=== PATIENT | female | born 1950 | race Two or more races ===

== ENCOUNTER 2018-09-30 02:00 | Emergency (ER) | payer MEDICARE, OTHER ==
[~2018-09-30] VITALS: Ht 144.8 cm; Wt 56.7 kg
--- NOTE | 2018-09-30 02:10 | NUR ---
PT BIBSELF C/C L ANKLE PAIN AND SWELLING X 2 WEEKS. -TRAUMA. PT ABLE TO BEAR WEIGHT. PT AOX4. NAD NOTED. RESP EVEN AND UNLABORED. PT ON MONITOR IN BED 9 WITH FAMILY AT BEDSIDE. WILL CONTINUE TO MONITOR.
[2018-09-30 02:19] VITALS: BP 160/106
[2018-09-30] MEDS ORDERED: IBUPROFEN 400 MG TABLET ONE (02:20)
[2018-09-30] MEDS ORDERED: IBUPROFEN 400 MG TABLET PO ONE (02:30)
--- NOTE | 2018-09-30 02:30 | NUR ---
RADIOLOGY AT BEDSIDE FOR XRAY
--- NOTE | 2018-09-30 04:12 | NUR ---
RADIOLOGY AT BEDSIDE FOR SHOULDER XRAY
--- NOTE | 2018-09-30 04:56 | NUR ---
Patient discharged to home in stable condition. Written and verbal after care instructions given. Patient verbalizes understanding of instruction. PT AMBULATORY WITH STEADY GAIT.
== END 2018-09-30 04:57 | disposition home or self-care (01) ==
LOC: ER 02:00
DX: M19.072 Primary osteoarthritis, left ankle and foot (principal); M25.512 Pain in left shoulder; M25.511 Pain in right shoulder; E03.9 Hypothyroidism, unspecified
CPT/HCPCS: 73030-TC; 73610-TC; 93971-TC

== ENCOUNTER 2019-11-13 14:59 | Inpatient (IN) | payer MEDICARE, OTHER ==
[~2019-11-13] VITALS: Ht 147.3 cm; Wt 71.2 kg
--- NOTE | 2019-11-13 15:11 | NUR ---
VIJAY CASTANEDA 79 From Home "Missed 2steps on step stool and fell- LLE pain, Given 100mcg fentanyl" to ER bed 9, hooked to monitor, changed to hosp gown, warm blanket provided, patient aoX4, breathing even and unlabored, awaiting md begum
--- NOTE | 2019-11-13 15:15 | NUR ---
Dr Riddle at bedside
[2019-11-13] MEDS ORDERED: KETOROLAC TROMETHAMINE INJ 30 MG/ML VIAL ONE (15:29)
[2019-11-13] MEDS ORDERED: KETOROLAC TROMETHAMINE INJ 60 MG/2 ML VIAL IM ONE (15:30)
[2019-11-13] MEDS ORDERED: IV NS 0.9% 1,000 ML BAG IV ONE (16:00)
--- NOTE | 2019-11-13 16:06 | NUR ---
CALLED NURSING SUP FOR BED
--- NOTE | 2019-11-13 16:07 | NUR ---
MOMO DYE FOR ADMISSION
[2019-11-13 16:12] LABS: BASOPHILS # (AUTO) 0.1 /CMM (0.0-0.2); BASOPHILS % (AUTO) 0.6 % (0.0-2.0); EOSINOPHILS % (AUTO) 0.4 % (0.0-6.0); HEMATOCRIT 37 % (33-45); LYMPHOCYTES # (AUTO) 1.6 /CMM (0.8-4.8); LYMPHOCYTES % (AUTO) 11.4 % (20.0-44.0); MEAN CORPUSCULAR HGB CONC 32 g/dl (31.0-36.0); MEAN CORPUSCULAR VOLUME 91 fL (82-100); MONOCYTES % (AUTO) 6.9 % (2.0-12.0); NEUTROPHILS # (AUTO) 11.2 /CMM (1.8-8.9); NEUTROPHILS % (AUTO) 80.7 % (43.0-81.0); PLATELET COUNT (AUTO) 293 /CMM (150-450); RED BLOOD CELL COUNT(AUTO) 4.12 MIL/uL (4.0-5.2); WHITE BLOOD COUNT (AUTO) 13.9 K/uL (4.3-11.0)
[2019-11-13 16:21] LABS: CALCIUM, SERUM 8.8 mg/dL (8.5-10.1); POTASSIUM 3.5 mmol/L (3.5-5.1)
[2019-11-13 16:26] LABS: ALBUMIN 3.4 g/dL (3.4-5.0); BILIRUBIN,DIRECT 0.1 mg/dL (0.0-0.2); BILIRUBIN,TOTAL 0.3 mg/dL (0.2-1.0); TOTAL PROTEIN, SERUM 6.9 g/dL (6.4-8.2)
[2019-11-13 16:30] LABS: APPEARANCE,URINE Clear (CLEAR); BILIRUBIN,URINE Negative (NEGATIVE); BLOOD, URINE Small Ery/uL (NEGATIVE); COLOR,URINE Yellow (YELLOW); KETONES,URINE Negative (NEGATIVE); LEUKOCYTE ESTERASE ,URINE Negative (NEGATIVE); NITRITE, URINE Negative (NEGATIVE); PROTEIN,URINE Negative (NEGATIVE); UGLUCOSE Negative (NEGATIVE); UROBILINOGEN,URINE 0.2 EU/dL (0.2)
[2019-11-13] MEDS ORDERED: Z GUARD REMEDY 2 OZ OINT TP PRN (16:30)
[2019-11-13] MEDS ORDERED: ACETAMINOPHEN 325 MG TABLET PO PRN (16:30)
[2019-11-13] MEDS ORDERED: ZOLPIDEM TARTRATE 5 MG TABLET PO PRN (16:30)
[2019-11-13] MEDS ORDERED: HYDROCODONE/APAP 5/325MG 1 EACH TABLET PO PRN (16:30)
[2019-11-13] MEDS ORDERED: MAG HYDROX/AL HYDROX/SIMETH 30 ML UDC PO PRN (16:30)
[2019-11-13] MEDS ORDERED: MAGNESIUM HYDROXIDE 30 ML UDC PO PRN (16:30)
--- NOTE | 2019-11-13 16:35 | NUR ---
REPORT GIVEN TO MIMI VILA OF [facility]
[2019-11-13] MEDS ORDERED: HYDROMORPHONE 1 MG/1 ML DISP.SYRIN IV ONE (17:00)
[2019-11-13 17:20] VITALS: BP 164/73
--- NOTE | 2019-11-13 17:30 | NUR ---
MS RN NOTES INFORMED PA/CC REGARDING PT FOR ORTHO CONSULT. PA/CC VERIFIED PT CAN EAT TONIGHT AND ORDERED STAT CT OF LFT KNEE WITH NO CONTRAST WITH 3D RECONSTRUCTION. CALLED TO RADIOLOGY AND MADE AWARE. PT INFORMED WITH PLAN WELL.
--- NOTE | 2019-11-13 17:45 | NUR ---
MS SAW SHARPENER NOTES RECEIVED PT FROM ER DEPT VIA [facility]RA[facility], ARRIVED AT THE UNIT AT 1705. PT AWAKE, A/O X4. TOLERATING RA,WITH NO ACUTE RESPIRATORY DISTRESS NOTED. VS TAKEN AND RECORDED. PT STATES PAIN TO LEFT KNEE OF 10/10, ORDERED DILAUDID 1MG ONE TIME DOSE GIVEN. PT ABLE TO PROVIDED HISTORY. PT ORIENTED TO ROOM, STAFF, ETC. PT PREFERS NOT TO BE TURNED OR MOVED FOR SKIN ASSESSMENTS AT THIS TIME. NO PICTURES TAKEN AND PT CLAIMED SKIN INTACT. PT KEPT COMFORTABLE IN BED AT THIS TIME. HOSPITALIST/MD/ADMITTING/GA AND ORTHO PA/CC MADE AWARE ABOUT PT. PIV TO LAC G20 AND RIGH HAND, FLUSHED WITH NS INTACT AND OPERATIONAL. FC IN PLACE WITH CLEAR YELLOW URINE. CALL LIGHT KEPT WITHIN REACH. PT'S BED IN LOWEST, LOCKED POSITION WITH SR X3. WILL ENDORSE TO INCOMING NIGHT NURSE FOR BALTAZAR.
[2019-11-13] MEDS ORDERED: LEVO75TA7 PO (18:54)
[2019-11-13] MEDS ORDERED: PRED5TAB48 PO (18:54)
--- NOTE | 2019-11-13 18:57 | NUR ---
MS RN NOTES SEEN AND EVALUATED BY /CONRAD, VERIFIED NPO STATUS POST MIDNIGHT AND MED RECON INPUT DONE. MD NOTIFIED.
[2019-11-13 20:00] VITALS: BP 143/62
--- NOTE | 2019-11-13 20:00 | NUR ---
MS RN NOTES NOTIFIED COURNasrin RE KNEE CT RESULTS. NNO AT THIS TIME. WILL CONTINUE TO MONITOR.
[2019-11-13 20:01] LABS: BACTERIA,URINE None seen /HPF (None Seen); SQUAMOUS EPITHELIAL CELL,UR Few /HPF (None Seen); WBC,URINE 0-2 /HPF (0-3)
--- NOTE | 2019-11-14 | NUR ---
MS RN NOTES RN EMI HANNA NOTIFIED INDUSTRIAL MAINTENANCE MANAGER RE PT SURGERY SCHEDULE ON FRIDAY @ 1330. WILL CONTINUE TO MONITOR
[2019-11-14] MEDS: ONDANSETRON HCL/PF 4 MG/2 ML VIAL IVP PRN ×2 (00:06→05:54)
[2019-11-14] MEDS: MORPHINE SULFATE INJ 2 MG/ML DISP.SYRIN IV PRN ×5 (00:06→22:52)
--- NOTE | 2019-11-14 06:15 | NUR ---
MS RN NOTES AWAKE & RESPONSIVE. NOT IN ANY DISTRESS. NO SOB NOTED. DENIES ANY PAIN OR DISCOMFORT AT THIS TIME. WITH IV-HL PATENT & INTACT. MONITORED ACCORDINGLY. CALL LIGHT WITHIN REACH. BED IN LOWEST POSITION. SR UP X 3 WITH BED ALARM ON FOR SAFETY. WILL ENDORSE TO NEXT SHIFT.
[2019-11-14 06:45] LABS: BASOPHILS % (AUTO) 0.2 % (0.0-2.0); EOSINOPHILS % (AUTO) 1.2 % (0.0-6.0); HEMATOCRIT 32 % (33-45); HEMOGLOBIN 10.4 g/dL (11.5-14.8); LYMPHOCYTES # (AUTO) 1.3 /CMM (0.8-4.8); LYMPHOCYTES % (AUTO) 13.4 % (20.0-44.0); MEAN CORPUSCULAR HGB CONC 33 g/dl (31.0-36.0); MEAN CORPUSCULAR VOLUME 89 fL (82-100); MONOCYTES # (AUTO) 0.8 /CMM (0.1-1.30); MONOCYTES % (AUTO) 8.4 % (2.0-12.0); NEUTROPHILS # (AUTO) 7.5 /CMM (1.8-8.9); NEUTROPHILS % (AUTO) 76.8 % (43.0-81.0); PLATELET COUNT (AUTO) 237 /CMM (150-450); RED BLOOD CELL COUNT(AUTO) 3.57 MIL/uL (4.0-5.2); WHITE BLOOD COUNT (AUTO) 9.8 K/uL (4.3-11.0)
[2019-11-14 07:11] LABS: CALCIUM, SERUM 8.3 mg/dL (8.5-10.1); CREATININE 0.8 mg/dL (0.6-1.3); MAGNESIUM 1.7 mg/dL (1.8-2.4); POTASSIUM 3.9 mmol/L (3.5-5.1)
--- NOTE | 2019-11-14 07:24 | NUR ---
MS RN OPENING NOTES RECEIVED PT AWAKE, A/O X4. TOLERATING RA,WITH NO ACUTE RESPIRATORY DISTRESS NOTED. PT DENIES ANY PAIN OR DISCOMFORT AT THIS TIME. PT DENIES ANY QUESTIONS OR CONCERNS AT THE MOMENT. PIV TO LAC G20 AND RIGHT HAND, BOTH FLUSHED WITH NS INTACT AND OPERATIONAL. FC IN PLACE WITH CLEAR YELLOW URINE. PT KEPT COMFORTABLE IN BED. CALL LIGHT KEPT WITHIN REACH. PT'S BED IN LOWEST, LOCKED POSITION WITH SR X3. WILL CONTINUE PLAN OF CARE.
--- NOTE | 2019-11-14 07:30 | NUR ---
MS RN NOTES PER HOUSEKEEPER HEAD NURSE/MADY, DR MAC CALLED LAST NIGHT AND SPOKE TO THEIR CHARGE NURSE/CAS, SURGERY ON FRIDAY AROUND 1PM. PT MADE AWARE.
[2019-11-14 08:00] VITALS: BP 140/61
[2019-11-14] MEDS ORDERED: MULT-24 PO (08:03)
[2019-11-14] MEDS ORDERED: FERR325T24 PO (08:03)
[2019-11-14] MEDS ORDERED: TURM500C9 PO (08:04)
[2019-11-14] MEDS: Magnesium 1GM/D5W 100ML PREMIX 100 ML IV SCH ×2 (08:28→10:28)
[2019-11-14] MEDS: MULTIVITAMINS,THERAGRAN 1 UDTAB TABLET PO SCH (08:45)
[2019-11-14] MEDS: LEVOTHYROXINE SODIUM 75 MCG TABLET PO SCH (08:45)
[2019-11-14] MEDS: predniSONE 5 MG TABLET PO SCH (08:45)
[2019-11-14 09:15] LABS: THYROID STIMULATING HORMONE 0.411 uIU/mL (0.358-3.74)
--- NOTE | 2019-11-14 14:45 | NUR ---
MS RN NOTES PRN MORPHINE IV GIVEN TO PT PER HER REPORT OF PAIN SCALE OF 8-9 OUT OF 10. WILL CONTINUE TO MONITOR PT.
[2019-11-14 16:00] VITALS: BP 165/87
--- NOTE | 2019-11-14 18:51 | NUR ---
MS RN CLOSING NOTES PT REMAINS IN BED, AWAKE, A/O X4. TOLERATING RA,WITH NO ACUTE RESPIRATORY DISTRESS NOTED. PT REPORTED 8/10 PAIN TO LEFT KNEE, PRN MORPHINE GIVEN PRN. PIV TO LAC G20, FLUSHED WITH NS INTACT AND OPERATIONAL. FC IN PLACE WITH CLEAR YELLOW URINE, OUTPUT OF 600ML. PT KEPT COMFORTABLE IN BED. CALL LIGHT KEPT WITHIN REACH. PT'S BED IN LOWEST, LOCKED POSITION WITH SR X3. WILL ENDORSE TO INCOMING UNIT SECY NURSE FOR BALTAZAR.
[2019-11-14 20:00] VITALS: BP 144/63
[2019-11-14 20:12] VITALS: BP 144/63
--- NOTE | 2019-11-14 21:18 | NUR ---
DIAMOND PICKER: RECEIVED REPORT FROM MIMI VILA AT 1900. PT IN BED, AWAKE, A/O X3, ON RA RESPIRATIONS EVEN AND UNLABORED, RECEIVED PRN MORPHINE AT 1846, PT STATED HER PAIN IS NOW 3/10, IMPROVED, AND PAIN IS TOLERABLE. IV ACCESS PATENT AND FLUSHING WELL, ON HL. DISCUSSED PLAN OF CARE TO PT. PT WOULD LIKE TO SPEAK WITH SURGEON/ORTHO BEFORE SIGNING ANY PAPER WORKS SUCH CONSENT. INFORMED PT SHE WILL BE NPO AFTER MIDNIGHT IN PREPARATION, PT AGREED AND UNDERSTAND. SAFETY PRECAUTIONS FOR FALL INITIATED, CALL LIGHT IN REACH, WILL CONTINUE MONITORING PT.
--- NOTE | 2019-11-14 22:52 | NUR ---
prn morphine: pt c/o 03/27 left knee and left leg pain, requesting for morphine. prn morphine 2mg ivp administered to pt at this time. pt stated she can feel its burning, check iv access, not leaking, able to flush easily with 10cc normal saline easily qqithout meeting resistance, no swelling noted or bleeding noted on iv access site prior to giving medication. informed pt we can always start new iv access so she's not going to have discomfort, but pt refused, stated "just use that its okay". education provided to pt. will continue monitoring pt.
[2019-11-15] VITALS (7 sets, daily range): BP systolic 126–162; BP diastolic 67–84
--- NOTE | 2019-11-15 00:19 | NUR ---
RN NOTES: REMINDED PT ABOUT BEING NPO, REMOVED BOTTLED WATER. NPO SIGN POSTED OUTSIDE THE ROOM/DOOR.
--- NOTE | 2019-11-15 02:00 | NUR ---
RN NOTES: PT REFUSED TO BE TURN AND REPOSITION STATED SHE HAD ENOUGH FROM YESTERDAY WHEN SHE LET THE ROAD DESIGN DRAFTSPERSON AND RN CLEANED HER BECAUSE SHE HAD BM.
[2019-11-15 06:24] LABS: BASOPHILS % (AUTO) 0.3 % (0.0-2.0); EOSINOPHILS % (AUTO) 2.3 % (0.0-6.0); HEMATOCRIT 33 % (33-45); HEMOGLOBIN 10.9 g/dL (11.5-14.8); LYMPHOCYTES # (AUTO) 1.6 /CMM (0.8-4.8); MEAN CORPUSCULAR HGB CONC 33 g/dl (31.0-36.0); MEAN CORPUSCULAR VOLUME 89 fL (82-100); MONOCYTES # (AUTO) 1.1 /CMM (0.1-1.30); MONOCYTES % (AUTO) 10.1 % (2.0-12.0); NEUTROPHILS # (AUTO) 7.6 /CMM (1.8-8.9); NEUTROPHILS % (AUTO) 72.3 % (43.0-81.0); PLATELET COUNT (AUTO) 213 /CMM (150-450); RED BLOOD CELL COUNT(AUTO) 3.71 MIL/uL (4.0-5.2); WHITE BLOOD COUNT (AUTO) 10.5 K/uL (4.3-11.0)
[2019-11-15 06:39] LABS: CALCIUM, SERUM 8.4 mg/dL (8.5-10.1); CREATININE 0.8 mg/dL (0.6-1.3); MAGNESIUM 2.1 mg/dL (1.8-2.4); POTASSIUM 3.9 mmol/L (3.5-5.1)
--- NOTE | 2019-11-15 06:51 | NUR ---
end of shift report: pt remains npo except meds, prn morphine administered for c/o 8/10 left knee and left leg pain, refused to be move or reposition despite providing education, no consent obtained as pt wishes to speak with ortho md prior to signing any documents. iv access remains patent and flushing well, no s/s of iv infiltration noted. vs remains stable, needs attended. safety precautions for fall remains engaged, call light in reach, will endorse to day rn for continuity of care,.
[2019-11-15] MEDS: LEVOTHYROXINE SODIUM 75 MCG TABLET PO SCH (07:30)
--- NOTE | 2019-11-15 08:00 | NUR ---
RN NOTES PATIENT RECEIVED IN THE BED A/O X4, FEMALE, ON LEFT KNEE FX. PATIENT NPO SCHEDULED FOR SURGERY. PATIENT NPO, BUT CONSENT FORM NOT SIGNED BECAUSE WANTED TO SPEAK WITH SURGEON. CALL LIGHT WITHIN TO REACH, F/C INTACT, IV ACCESS ON LEFT AC AREA INTACT. CALL LIGHT WITHIN TO REACH. V/S TAKEN BP 160/84, P-88, R-20,T-99.4. CALL LIGHT WITHIN TO REACH. SAFETY PRECAUTION MAINTAINED ALL THE TIME.
[2019-11-15] MEDS: MULTIVITAMINS,THERAGRAN 1 UDTAB TABLET PO SCH (08:22)
[2019-11-15] MEDS: predniSONE 5 MG TABLET PO SCH (08:22)
--- NOTE | 2019-11-15 09:30 | NUR ---
RN NOTES SEEN PATIENT BY CHARLINE SORTO EXPLAINED PATIENT SURGERY AND EFFECTS. PATIENT AGREES TO SIGN CONSENT FORMA, PATIENT NPO, REFUSED PAIN AT THIS TIME. CALL LIGHT WITHIN TO REACH, CONTINUED MONITORING.
[2019-11-15] MEDS: MORPHINE SULFATE INJ 2 MG/ML DISP.SYRIN IV PRN (12:05)
--- NOTE | 2019-11-15 12:05 | NUR ---
RN NOTES ADMINISTERED MORPHINE SULFATE 2 MG/ML IV PUSH FOR LEFT LEG PAIN 03/27 PER PATIENTY REQUEST, V/S TAKEN BPP 162/84, P-90, R-20, O2-95 ROOM AIR.
[2019-11-15] MEDS ORDERED: BUPIVACAINE 0.5 % PF 150 MG/30 ML VIAL ONE (12:27)
[2019-11-15] MEDS ORDERED: ANESTHESIA TRAY IN PYXIS 1 EA TRAY MC ONE (12:27)
--- NOTE | 2019-11-15 12:30 | NUR ---
RN NOTES EDUCATED PATIENT PRE-UP SPIROMETER USE, PATIENT VERBALIZED UNDERSTANDING. DVT PUMP ON ON RIGHT LEG. INSERTED NEW IV ACCESS ON RIGHT AC#22 PATENT, INTACT.
[2019-11-15] MEDS ORDERED: HYDROCORTISONE SOD SUCCINATE 100 MG/2 ML VIAL ONE (13:00)
--- NOTE | 2019-11-15 13:03 | NUR ---
RN NOTES PATIENT BARREL LINE OPERATOR FOR SURGERY AT THIS TIME, STABLE, V/S TAKEN BP 162/84, P-80, O2-95 ROOM AIR, T-99.2, R-20. REMOVED UPPER DENTURE.
[2019-11-15] MEDS ORDERED: ROCURONIUM BROMIDE 50 MG/5 ML ONE (13:12)
[2019-11-15] MEDS ORDERED: HYDROMORPHONE INJ 2 MG/ML DISP.SYRIN ONE (13:12)
[2019-11-15] MEDS ORDERED: BACITRACIN 50000 UNITS/VIAL ONE (14:38)
[2019-11-15] MEDS ORDERED: VANCOMYCIN 1 GM VIAL ONE (15:02)
--- NOTE | 2019-11-15 16:30 | NUR ---
RN NOTES PATIENT BACK FROM SURGERY, AWAKE, NO ACUTE RESPIRATORY DISTRESS. V/S TAKEN BP 162/82, P-82, R-20, O2-2LNC 96, T-99.2. PATIENT HAS IMMOBILIZED BRACE ON LEFT LEG, DVT PUMP ON RIGHT LEG, PATIENT REFUSED PAIN AT THIS TIME, F/C DARNING LIGHT YELLOW OUTPUT, NEW ORDERS TAKEN AND CARRIED OUT.CALL LIGHT WITHIN TO REACH, CONTINUED MONITORING.
[2019-11-15 16:31] LABS: HEMOGLOBIN 10.9 g/dL (11.5-14.8)
[2019-11-15] MEDS: IV LR 1000 ML 1,000 ML IV PRN (17:09)
[2019-11-15] MEDS: SOD FERRIC GLUC 125 MG in IV NS 0.9% 100 ML IV SCH (17:16)
--- NOTE | 2019-11-15 18:30 | NUR ---
RN NOTES PATIENT IN THE BED REFUSED PAIN AT THIS TIME, V/S TAKEN STABLE, BP-131/73, P-84, PATIENT TOLERATED DINNER WELL,INFUSING LR AT 75 ML/HR ON RIGHT AC AREA INTACT, F/C DRAINING LIGHT YELLOW OUTPUT. CALL LIGHT WITHIN TO REACH. ENDORSED ONCOMING NURSE FOLLOW PLAN OF CARE.
--- NOTE | 2019-11-15 19:30 | NUR ---
RN NOTES PM NOTES BEDSIDE REPORT RECIEVED FROM MELLISSA VILA. PATIENT IN BED POST OP ORIF OF LEFT TIBIA PLATEAU FX. PATIENT HAS SURGICAL DRESSING TO LEFT LEG. WITH IMMOBILIZER. FC DRAINING TO GRAVITY PATIENT ALERT AND ORIENTED X4 AWOKEN TO VOICE. LR RUNNING AT 75 ML AN HOUR TO RIGHT AC 22 GAUGE NO S/S OF INFILTRATION. PATIENT DENIES PAIN BED LOCKED SR X2 WILL CONT TO MONITOR. VERBALIZED UNDERSTANDING TO CALL FR ASSISTANCE IF NEEDED.
[2019-11-15] MEDS: ANCEF 1 GM/50 ML D5W IV SCH ×2 (21:14)
[2019-11-16] MEDS: IV LR 1000 ML 1,000 ML IV PRN ×2 (05:53→23:00)
[2019-11-16] MEDS: ANCEF 1 GM/50 ML D5W IV SCH ×2 (05:53)
[2019-11-16 06:30] LABS: ALBUMIN 2.3 g/dL (3.4-5.0); BILIRUBIN,TOTAL 0.3 mg/dL (0.2-1.0); CALCIUM, SERUM 8.3 mg/dL (8.5-10.1); CREATININE 0.9 mg/dL (0.6-1.3); MAGNESIUM 1.9 mg/dL (1.8-2.4); PHOSPHORUS 3.3 mg/dL (2.5-4.9); POTASSIUM 3.8 mmol/L (3.5-5.1); TOTAL PROTEIN, SERUM 5.8 g/dL (6.4-8.2)
[2019-11-16 06:39] LABS: BASOPHILS % (AUTO) 0.1 % (0.0-2.0); EOSINOPHILS % (AUTO) 0.1 % (0.0-6.0); HEMATOCRIT 30 % (33-45); HEMOGLOBIN 9.6 g/dL (11.5-14.8); LYMPHOCYTES # (AUTO) 0.9 /CMM (0.8-4.8); LYMPHOCYTES % (AUTO) 7.5 % (20.0-44.0); MEAN CORPUSCULAR HGB CONC 32 g/dl (31.0-36.0); MEAN CORPUSCULAR VOLUME 89 fL (82-100); MONOCYTES # (AUTO) 0.9 /CMM (0.1-1.30); MONOCYTES % (AUTO) 7.2 % (2.0-12.0); NEUTROPHILS # (AUTO) 10.3 /CMM (1.8-8.9); NEUTROPHILS % (AUTO) 85.1 % (43.0-81.0); PLATELET COUNT (AUTO) 197 /CMM (150-450); RED BLOOD CELL COUNT(AUTO) 3.35 MIL/uL (4.0-5.2); WHITE BLOOD COUNT (AUTO) 12.1 K/uL (4.3-11.0)
[2019-11-16] MEDS: LEVOTHYROXINE SODIUM 75 MCG TABLET PO SCH (07:42)
[2019-11-16 08:00] VITALS: BP 151/74
[2019-11-16] MEDS: predniSONE 5 MG TABLET PO SCH (08:20)
[2019-11-16] MEDS: MULTIVITAMINS,THERAGRAN 1 UDTAB TABLET PO SCH (08:20)
[2019-11-16] MEDS: ENOXAPARIN SODIUM 40 MG/0.4 ML DISP.SYRIN SQ SCH (08:21)
[2019-11-16] MEDS: HYDROCODONE/APAP 5/325MG 1 EACH TABLET PO PRN ×2 (08:21→19:34)
--- NOTE | 2019-11-16 09:55 | NUR ---
MS RN - OPENING NOTES Received patient from production supervisor off shift nurse, in bed, awake, conscious, coherent and cooperative. With IVF at right arm LR at 75 ml/hr. Vasquez Catheter noted. Patient is status post ORIF left tibial. Left foot is elevated with pillow.
--- NOTE | 2019-11-16 10:06 | NUR ---
MS RN - PAIN Patient verblized the she is in pain. With a pain scale of 4. PRN pain meds given at 8:21am.
[2019-11-16] MEDS: SOD FERRIC GLUC 125 MG in IV NS 0.9% 100 ML IV SCH (13:10)
[2019-11-16 16:00] VITALS: BP 158/79
--- NOTE | 2019-11-16 19:10 | NUR ---
MS RN - READ CATHETER Read catheter remove 18:38 at patient's request. With urine output of500
--- NOTE | 2019-11-16 19:15 | NUR ---
MS RN - URINE Urine output in vann catheter is 500 ml after removing from the patient.
--- NOTE | 2019-11-16 19:16 | NUR ---
MS RN- CLOSING NOTES Endorsed patient to shift foreman nurse on duty, in bed, awake, conscious, coherent and cooperative. With IVF LR at 75 ml/hr RAC, SCD in place on right knee, left knee dressing in place with immoblizer in place. Possible discharge tomorrow with home health if cleared by MD.
--- NOTE | 2019-11-16 19:20 | NUR ---
MS RN OPENING NOTES PATIENT AWAKE IN ROOM. A/OX4. ABLE TO VERBALIZE NEEDS. ON ROOM AIR. LEFT KNEE IMMOBILIZER PRESENT. NO S/S OF ACUTE RESPIRATORY DISTRESS. PATIENT C/O OF PAIN RATED 8/10 ON LEFT LEG. IV PRESENT ON RIGHT AC, SIZE 22, INTACT & PATENT, WITH LR RUNNING AT 75 ML/HR. SAFETY MEASURES IN PLACE. BED LOCKED, SIDE RAILS X2, CALL LIGHT WITHIN REACH. WILL CONTINUE TO MONITOR.
--- NOTE | 2019-11-16 19:34 | NUR ---
MS RN NOTES PATIENT C/O OF LEFT LEG PAIN RATED 8/10. PER PATIENT'S REQUEST ADMINISTER PRN TWO TABS OF NORCO 5/325 MG. BP: 156/79 HR: 80. CALL LIGHT WITHIN REACH. WILL CONTINUE TO MONITOR.
[2019-11-16 19:50] VITALS: BP 156/79
[2019-11-17] MEDS: HYDROCODONE/APAP 5/325MG 1 EACH TABLET PO PRN ×2 (03:35→19:18)
--- NOTE | 2019-11-17 03:36 | NUR ---
MS RN NOTES PATIENT C/O LEFT LEG PAIN RATED 9/10. PER PATIENT'S REQUEST ADMINISTERED PRN NORCO. BP: 160/82 HR: 70. CALL LIGHT WITHIN REACH. WILL CONTINUE TO MONITOR.
--- NOTE | 2019-11-17 06:31 | NUR ---
MS RN CLOSING NOTES PATIENT SLEEPING IN BED, EASY TO AWAKEN. REMAINED STABLE DURING SHIFT. A/OX4. ON ROOM AIR. PATIENT DENIES SOB OR PAIN AT THIS TIME. LEFT LEG IMMOBILIZER REMAINS INTACT. IV ON RIGHT AC, SIZE 22, INTACT & PATENT, LR RUNNING AT 75 ML/HR. SAFETY MEASURES IN PLACE. BED LOCKED, SIDE RAILS X2, CALL LIGHT WITHIN REACH. WILL ENDORSE TO DAY SHIFT NURSE PLAN OF CARE.
[2019-11-17] MEDS: LEVOTHYROXINE SODIUM 75 MCG TABLET PO SCH (06:37)
[2019-11-17 06:39] LABS: ALBUMIN 2.2 g/dL (3.4-5.0); BILIRUBIN,TOTAL 0.3 mg/dL (0.2-1.0); CALCIUM, SERUM 8.1 mg/dL (8.5-10.1); CREATININE 0.9 mg/dL (0.6-1.3); MAGNESIUM 1.9 mg/dL (1.8-2.4); PHOSPHORUS 2.6 mg/dL (2.5-4.9); POTASSIUM 3.5 mmol/L (3.5-5.1); TOTAL PROTEIN, SERUM 5.6 g/dL (6.4-8.2)
[2019-11-17 07:18] LABS: BASOPHILS % (AUTO) 0.2 % (0.0-2.0); EOSINOPHILS % (AUTO) 2.2 % (0.0-6.0); HEMATOCRIT 28 % (33-45); LYMPHOCYTES # (AUTO) 2.1 /CMM (0.8-4.8); LYMPHOCYTES % (AUTO) 19.9 % (20.0-44.0); MEAN CORPUSCULAR HGB CONC 33 g/dl (31.0-36.0); MEAN CORPUSCULAR VOLUME 89 fL (82-100); MONOCYTES # (AUTO) 1.1 /CMM (0.1-1.30); NEUTROPHILS # (AUTO) 7.1 /CMM (1.8-8.9); NEUTROPHILS % (AUTO) 67.7 % (43.0-81.0); PLATELET COUNT (AUTO) 225 /CMM (150-450); RED BLOOD CELL COUNT(AUTO) 3.13 MIL/uL (4.0-5.2); WHITE BLOOD COUNT (AUTO) 10.6 K/uL (4.3-11.0)
--- NOTE | 2019-11-17 07:48 | NUR ---
MS RN- OPENING NOTES Received patient in bed, awake, conscious, coherent and cooperative. S/P Left tibial, elevated in 1 pillow. IVF right AC LR at 75 ml/hr infusing well.
[2019-11-17 08:00] VITALS: BP 142/80
[2019-11-17] MEDS: MULTIVITAMINS,THERAGRAN 1 UDTAB TABLET PO SCH (08:02)
[2019-11-17] MEDS: predniSONE 5 MG TABLET PO SCH (08:02)
[2019-11-17] MEDS: ENOXAPARIN SODIUM 40 MG/0.4 ML DISP.SYRIN SQ SCH (08:03)
[2019-11-17] MEDS: SOD FERRIC GLUC 125 MG in IV NS 0.9% 100 ML IV SCH (15:50)
--- NOTE | 2019-11-17 19:03 | NUR ---
MS RN- CLOSING NOTES Endorsed patient to lieutenant shift supervisor nurse in bed, awake, conscious, coherent and cooperative. Wtih IV access at left arm, SCD on right leg.
--- NOTE | 2019-11-17 19:41 | NUR ---
MS RN OPENING NOTES PATIENT RECEIVED RESTING IN BED A/O X4. STABLE ON RA WITH BREATHING EVEN AND UNLABORED, NO SOB NOTED. NO SIGNS OF ACUTE DISTRESS. COMPLAINTS OF PAIN OR DISCOMFORT, RATE OF 4. IV LOCATED ON RAC #20 SL. SAFETY PRECAUTIONS IN PLACE WITH BED IN LOWEST POSITION, CALL LIGHT WITHIN REACH BREAKS ON, SIDE RAILS UP. WILL CONTINUE TO MONITOR THROUGHOUT THE NIGHT.
--- NOTE | 2019-11-17 19:44 | NUR ---
MS RN NOTES ADMINISTERED NORCO 2-325 TO PATIENT DUE TO PAIN. WILL CONTINUE TO MONITOR.
[2019-11-17 20:50] VITALS: BP 164/74
--- NOTE | 2019-11-18 06:29 | NUR ---
MS RN OPENING NOTES PATIENT RESTING IN BED A/O X4. STABLE ON RA WITH BREATHING EVEN AND UNLABORED, NO SOB NOTED. NO SIGNS OF ACUTE DISTRESS. NO COMPLAINTS OF PAIN OR DISCOMFORT. IV LOCATED ON RAC #20 SL. SAFETY PRECAUTIONS IN PLACE WITH BED IN LOWEST POSITION, CALL LIGHT WITHIN REACH BREAKS ON, SIDE RAILS UP. ALL NEEDS ATTENDED TO. PATIENT WAS KEPT CLEAN AND DRY. WILL ENDORSE TO ONCOMING SHIFT ABOUT BALTAZAR.
[2019-11-18 06:37] LABS: BASOPHILS % (AUTO) 0.2 % (0.0-2.0); HEMATOCRIT 30 % (33-45); HEMOGLOBIN 9.8 g/dL (11.5-14.8); LYMPHOCYTES # (AUTO) 2.3 /CMM (0.8-4.8); LYMPHOCYTES % (AUTO) 21.9 % (20.0-44.0); MEAN CORPUSCULAR HGB CONC 33 g/dl (31.0-36.0); MEAN CORPUSCULAR VOLUME 88 fL (82-100); MONOCYTES % (AUTO) 9.8 % (2.0-12.0); NEUTROPHILS # (AUTO) 6.9 /CMM (1.8-8.9); NEUTROPHILS % (AUTO) 65.1 % (43.0-81.0); PLATELET COUNT (AUTO) 275 /CMM (150-450); RED BLOOD CELL COUNT(AUTO) 3.36 MIL/uL (4.0-5.2); WHITE BLOOD COUNT (AUTO) 10.7 K/uL (4.3-11.0)
[2019-11-18] MEDS: LEVOTHYROXINE SODIUM 75 MCG TABLET PO SCH (06:39)
[2019-11-18 07:04] LABS: CALCIUM, SERUM 8.6 mg/dL (8.5-10.1); CREATININE 0.7 mg/dL (0.6-1.3); PHOSPHORUS 2.7 mg/dL (2.5-4.9); POTASSIUM 3.8 mmol/L (3.5-5.1)
--- NOTE | 2019-11-18 07:30 | NUR ---
MS/RN - Assessment Patient awake, A/O x 4, reports mild pain to left knee op site but refused medication for now, afebrile, stable on room air. Skin is intact except for left knee surgical incision POD#3 ORIF left tibial plateau fracture with . Left knee dressing is c/d/i without drainage, discharge, immobilizer in place, continue NWB on LLE. Skin on BLE is warm to touch, negative calf tenderness, negative for edema, sensation on both lower ext are intact. RAC saline lock with no signs of infiltration. Labs reviewed, no critical results. Fall precautions maintained. All needs attended and met. Patient for discharge home with home health today. All DMEs and home health arranged by case picker.
[2019-11-18 08:00] VITALS: BP 151/70
[2019-11-18] MEDS: predniSONE 5 MG TABLET PO SCH (08:36)
[2019-11-18] MEDS: MULTIVITAMINS,THERAGRAN 1 UDTAB TABLET PO SCH (08:36)
[2019-11-18] MEDS: ENOXAPARIN SODIUM 40 MG/0.4 ML DISP.SYRIN SQ SCH (08:37)
[2019-11-18] MEDS: HYDROCODONE/APAP 5/325MG 1 EACH TABLET PO PRN (10:23)
--- NOTE | 2019-11-18 10:31 | NUR ---
MS RN- MORNING SHIFT OPENING NOTES Received patient from shift production supervisor nurse in bed, awake, conscious, cooperative, no SOB noted, with SCD on right leg.
--- NOTE | 2019-11-18 10:32 | NUR ---
MS RN - PAIN Hydrocodone 5/325mg 2 tabs given. Patient has a pain scale of 4.
[2019-11-18] MEDS ORDERED: HYDR-4384 PO (11:14)
[2019-11-18] MEDS ORDERED: ASPI-992 PO (11:14)
--- NOTE | 2019-11-18 13:42 | NUR ---
MS/RN - Discharge Patient alert and oriented X 4, discharged home with home health in stable condition, remain afebrile, denies pain, not in any form of distress. Left knee dressing was changed today by NOREEN Roberto. Reviewed discharge instructions with patient and she verbalized full understanding of all teachings including medications and follow-up care with PCP, Ortho, Cardio as scheduled. Continue home medications as ordered. Written prescription for [place] and Aspirin given to the patient. Advised to get help right away if she have drainage, redness, swelling or pain at the incision site, bad smell coming from the op site or the dressing, fever, chest pain, shortness of breath, palpitations, abdominal pain/distention, intractable nausea and vomiting, diarrhea, hematochezia, melena, weakness, loss of consciousness, neurological deficit or any other emergent concerns. All belongings with patient and she deny any missing items. Patient refused photos to be taken of skin, no breakdown. Saline lock removed on the right AC with catheter tip intact, no redness, no swelling noted at the site. Discharge paperwork signed and copies were given per protocol. Daughter Sunshine aware of discharge and in agreement. Patient left the unit at 13:40 and was transported via ambulance.
== END 2019-11-18 13:40 | disposition home or self-care (01) | DRG 492 ==
LOC: ER 15:00 → MED 16:51 → MEDSG2 11-17 16:34
PROVIDERS: ADMIT Family Medicine; ATTEND Nurse Practitioner Acute Care
PROC: 0QSH04Z Reposition Left Tibia with Internal Fixation Device, Open Approach (ICD-10-PCS; principal; 2019-11-15)
DX: S82.142A Displaced bicondylar fracture of left tibia, initial encounter for closed fracture (principal); N17.0 Acute kidney failure with tubular necrosis; E44.0 Moderate protein-calorie malnutrition; W11.XXXA Fall on and from ladder, initial encounter; Y92.000 Kitchen of unspecified non-institutional (private) residence as the place of occurrence of the external cause; D72.829 Elevated white blood cell count, unspecified; D64.9 Anemia, unspecified; E03.9 Hypothyroidism, unspecified; E83.42 Hypomagnesemia; M17.10 Unilateral primary osteoarthritis, unspecified knee; I70.0 Atherosclerosis of aorta; S82.832A Other fracture of upper and lower end of left fibula, initial encounter for closed fracture; R73.9 Hyperglycemia, unspecified; Z82.61 Family history of arthritis; Z82.5 Family history of asthma and other chronic lower respiratory diseases; D50.9 Iron deficiency anemia, unspecified; E86.0 Dehydration; Z98.890 Other specified postprocedural states; Z79.899 Other long term (current) drug therapy; M19.90 Unspecified osteoarthritis, unspecified site
CPT/HCPCS: 36415; 71045-TC; 72170-TC; 73560-TC; 73562; 73700-TC; 80048-TC; 80053-TC; 80061-TC; 80076-TC; 81000-TC; 82728-TC; 83540-TC; 83690-TC; 83735-TC; 84100-TC; 84439-TC; 84443-TC; 85025-TC; 85027-TC; 85730-TC; 86850-TC; 87081-TC; 93307-TC; 97110-TC; 97112-TC; 97116-TC; 97530-TC; G0378; J0690; J1100; J1170; J1650; J1720; J1885; J2270; J2405; J2704; J2710; J2916; J3370; J3475; J3490; J7030; J7060; J7120; J7512